=== PATIENT | female | born 1950 | race Caucasian/White ===

== ENCOUNTER 2019-08-08 10:40 | Outpatient (CLI) | payer MEDICARE, MEDICAID, SELFPAY ==
[2019-08-08 11:34] LABS: Basophils % 0.5 %; Eosinophils # 0.2 10^3/uL (0.0-0.8); Eosinophils % 2.7 %; Hematocrit 43.9 % (37.0-47.0); Hemoglobin 14.5 g/dL (11.5-15.3); Lymphocytes # 2.2 10^3/uL (0.8-4.8); Lymphocytes % 28.6 %; Mean Corpuscular Hemoglobin 29.9 pg (28.0-34.0); Mean Corpuscular Volume 90.5 fL (81-99); Mean Platelet Volume 11.3 fL (7.4-10.4); Monocytes # 0.6 10^3/uL (0.2-0.9); Monocytes % 7.6 %; Neutrophils # 4.6 10^3/uL (1.8-7.7); Neutrophils % 60.5 %; Nucleated Red Blood Cells % 0 %; Platelet Count 219 10^3/cmm (130-400); Red Blood Count 4.85 10^6/uL (4.1-5.3); Red Cell Distribution Width 12.7 % (12.1-15.1); White Blood Count 7.5 10^3/uL (4.0-10.0)
[2019-08-08 11:42] LABS: Ferritin 195 ng/mL (15-150); Iron 164 ug/dL (37-145); Percent Saturation 68.6 % (20-50); Total Iron Binding Capacity 239 mcg/dl; Unsaturated Iron Binding 75 ug/dL (112-347)
--- NOTE | 2019-08-08 13:18 | ONC FU_ITS ---
Dr. Appiah follow up note Patient: Yanet Valentin Unit #: [id number]: 1950 Dicatated By: Prudencio Appiah M.D.Date of Visit:Aug 08, 2019 Onc Med Follow-up/Prog Note History of Present Illness: Mrs. Yanet Valentin , is a 69 -year-old female recently diagnosed with iron deficiency anemia,, underwent colonoscopy on 08/08/2018, as per patient it was normal exam. Patient's follow-up CBC done on 08/24/2018 showed white blood count 6.8 hemoglobin 6.8, hematocrit 24.4 MCV 59 MCHC 27.9 platelets 448,000 and iron studies showed ferritin 4, TIBC 379, reticulocyte count 1.1, iron saturation 2% patient was given 2 units of packed RBCs on 08/29/2018 and started on oral iron delayed-release fe sulfate 325 mg 2 tablets every other day with vitamin C. Repeat CBC on 09/12/2018 showed white blood count 8 hemoglobin 11.2 crit 36.2 MCV 68 platelets 338,000 Status post Injectafer 750 mg weekly ???2 in November 2018 Came for follow-up, denies any specific complaints, no fever or chills, no nausea or vomiting no diarrhea constipation, no melena or hematochezia, no palpitation or shortness of breath. No generalized weakness and fatigue. Medications: B-6 1 Tablet (of 50 mg) Oral daily, FLUoxetine HCl 1 Tablet (of 20 mg) Oral daily, Levothyroxine Sodium 1 Tablet (of 100 mcg) Oral daily, Potassium Chloride ER 1 Tablet (of 10 meq) Tablet, controlled release Oral daily, Pravastatin Sodium 1 Tablet (of 20 mg) Oral at bedtime, Valsartan 1 Tablet (of 160 mg) Oral b.i.d., Vitamin C 1 Tablet (of 500 mg) Capsule Oral PRN Allergies: Penicillins Review of Systems: Constitutional - Appetite is good, no unexplained wightloss. No fevers, chills, night sweats. Energy level is good, ENMT - No sinus congestion/drainage. No mouth sores. No sore throat or difficulty swallowing, Hematologic/Lymphatic - The patient denies any tender or palpable lymph nodes, Respiratory - No dyspnea on exertion, chest pain, cough or hemoptysis, Cardiovascular - No anginal chest pain, palpitations or orthopnea, Gastrointestinal - No nausea, vomiting, diarrhea, GI bleeding, or constipation. No change in bowel habits, no heartburn or early satiety, Genitourinary (F) - No hematuria, dysuria, increased frequency, urgency, hesitancy or incontinence, Musculoskeletal - No joint pain, swelling or redness. No decreased range of motion, Neurologic - No headache or dizziness. No numbness/paresthesias or other focal neurologic symptoms, Psychiatric - No insomnia, depression, bishop or mood swings. No psychotropic drugs. Vital Signs: Performed on Aug 08, 2019 12:37 Height - 62.00 in Temperature - 98.4 F Pulse - 63 /min Respiration - 18 /min BP - 151/91 mm(hg) (HIGH) O2 Sat - 100 % Pain - 0 Performance Status: 0 - Fully active, able to carry on all predisease activities without restrictions. (ECOG) Physical Examination: ENMT - No oral exudates, ulcers, masses, thrush or mucositis. Oropharynx clear. Tongue normal, Respiratory - Lungs are clear to auscultation without rhonchi or wheezing, Cardiovascular - Regular rate and rhythm of heart, Abdomen - Non-tender, non-distended, Good bowel sounds. No guarding or rebound tenderness. No pulsatile masses, Extremities - no edema. Lab/Imaging: Test performed on May 13, 2019 08:50 Ferritin 216.0 ng/ml WBC 7.1 10 3/uL RBC 4.74 10 6/uL HGB 14.4 g/dL HCT 44.7 % MCV 94.3 fl MCH 30.4 pg MCHC 32.2 g/dl RDW 12.9 % Platelet Count 229 10 3/cmm MPV 11.2 fl Neutrophils 4.0 10 3/uL Lymphocytes 2.3 10 3/uL Monocytes 0.5 10 3/uL Eosinophils 0.2 10 3/uL Basophils 0.1 10 3/uL Neutrophil % 56.1 % Lymphocyte % 32.8 % Monocyte % 7.1 % Eosinophil % 3.2 % Basophils % 0.7 % CBC Slide Review SLIDE REVIEW PERFORM SLIDE REVIEW AGREES WITH AUTOMATED RESULTS ST Impression: Microcytic, hypochromic anemia due to iron deficiency due to chronic GI blood loss or malabsorption, less likely as not responding well to oral iron. Iron studies done on 08/27/2018 showed ferritin 4, TIBC 379, iron saturation 2%, reticulocyte count 1.1, CBC done on 08/24/2018 showed white blood count 6.8 hemoglobin 6.8 hematocrit 24.4 MCV 59 MCH 16.5 MCHC 27.9, platelets 448,000 Status post 2 units of packed RBCs done on 08/29/2018 Colonoscopy done on 08/13/2018 showed, as per patient, no evidence of GI bleed Plan: Discussed with patient regarding her labs white blood count 7.5 globin 14.5 hematocrit 43.9 platelets 219,000 ferritin 195 TIBC 239 iron saturation 68.6 Clinically, patient is doing well, more energetic, follow-up lab shows hemoglobin and iron studies within normal range. We'll continue to monitor she'll return to clinic in 3 months with CBC and iron studies if normal then we'll see her on as-needed basis Signed By: Prudencio Appiah M.D. <<Signature on File>>
== END 2019-08-08 10:41 | disposition home or self-care (01) ==
LOC: ONCMED 10:45
PROVIDERS: Family Provider Nurse Practitioner Family; PCP Nurse Practitioner Family; Visit Provider Internal Medicine Hematology & Oncology
DX: D50.9 Iron deficiency anemia, unspecified (principal); Z79.899 Other long term (current) drug therapy
CPT/HCPCS: 36415; 82728; 83540; 83550; 85025; G0463

== ENCOUNTER 2019-10-31 13:16 | Outpatient (CLI) | payer MEDICARE, MEDICAID, SELFPAY ==
[2019-10-31 13:45] LABS: Basophils % 0.4 %; Eosinophils # 0.1 10^3/uL (0.0-0.8); Eosinophils % 1.4 %; Hematocrit 44.9 % (37.0-47.0); Hemoglobin 14.6 g/dL (11.5-15.3); Lymphocytes # 2.1 10^3/uL (0.8-4.8); Lymphocytes % 30.5 %; Mean Corpuscular HGB Conc 32.5 g/dL (30.0-36.0); Mean Corpuscular Hemoglobin 29.4 pg (28.0-34.0); Mean Corpuscular Volume 90.3 fL (81-99); Mean Platelet Volume 10.7 fL (7.4-10.4); Monocytes # 0.5 10^3/uL (0.2-0.9); Monocytes % 6.6 %; Neutrophils # 4.3 10^3/uL (1.8-7.7); Neutrophils % 60.8 %; Nucleated Red Blood Cells % 0 %; Platelet Count 249 10^3/cmm (130-400); Red Blood Count 4.97 10^6/uL (4.1-5.3); Red Cell Distribution Width 12.7 % (12.1-15.1)
[2019-10-31 13:59] LABS: Ferritin 195 ng/mL (15-150); Iron 110 ug/dL (37-145); Percent Saturation 53.9 % (20-50); Total Iron Binding Capacity 204 mcg/dl; Unsaturated Iron Binding 94 ug/dL (112-347)
--- NOTE | 2019-10-31 14:24 | ONC FU_ITS ---
Dr. Appiah follow up note Patient: Yanet Valentin Unit #: [id number]: 1950 Dicatated By: Prudencio Appiah M.D.Date of Visit:Oct 31, 2019 Onc Med Follow-up/Prog Note History of Present Illness: Mrs. Yanet Valentin , is a 69 -year-old female recently diagnosed with iron deficiency anemia,, underwent colonoscopy on 08/08/2018, as per patient it was normal exam. Patient's follow-up CBC done on 08/24/2018 showed white blood count 6.8 hemoglobin 6.8, hematocrit 24.4 MCV 59 MCHC 27.9 platelets 448,000 and iron studies showed ferritin 4, TIBC 379, reticulocyte count 1.1, iron saturation 2% patient was given 2 units of packed RBCs on 08/29/2018 and started on oral iron delayed-release fe sulfate 325 mg 2 tablets every other day with vitamin C. Repeat CBC on 09/12/2018 showed white blood count 8 hemoglobin 11.2 crit 36.2 MCV 68 platelets 338,000 Status post Injectafer 750 mg weekly ???2 in November 2018, With excellent response Came for follow-up, denies any specific complaints, no nausea or vomiting, no diarrhea or constipation, no melena hematochezia, no shortness of breath or palpitation, energetic and no new signs symptoms. Medications: B-6 1 Tablet (of 50 mg) Oral daily, FLUoxetine HCl 1 Tablet (of 20 mg) Oral daily, Levothyroxine Sodium 1 Tablet (of 100 mcg) Oral daily, Potassium Chloride ER 1 Tablet (of 10 meq) Tablet, controlled release Oral daily, Pravastatin Sodium 1 Tablet (of 20 mg) Oral at bedtime, Valsartan 1 Tablet (of 160 mg) Oral b.i.d., Vitamin C 1 Tablet (of 500 mg) Capsule Oral PRN Allergies: Penicillins Review of Systems: Review of Systems is not available for this patient. Vital Signs: Performed on Oct 31, 2019 14:05 Height - 62.00 in Weight - 134.8 lbs (HIGH) BSA - 1.62 sq.m BMI - 24.66 Temperature - 99.2 F (HIGH) Pulse - 60 /min Respiration - 18 /min BP - 156/76 mm(hg) (HIGH) O2 Sat - 98 % Pain - 0 Performance Status: 0 - Fully active, able to carry on all predisease activities without restrictions. (ECOG) Physical Examination: ENMT - No mouth sores, no thrush or jaundice, Respiratory - Lungs are clear to auscultation, Cardiovascular - Regular rate and rhythm of heart, Abdomen - Soft, bowel sounds present, nontender, Extremities - No visible edema. Lab/Imaging: Test performed on Aug 08, 2019 10:55 Ferritin 195 ng/mL Iron 164 mcg/dL Iron Binding Capacity (TIBC) 239 mcg/dl % Iron Saturation 68.6 % UIBC 75 mcg/dL WBC 7.5 10 3/uL RBC 4.85 10 6/uL HGB 14.5 g/dL HCT 43.9 % MCV 90.5 fL MCH 29.9 pg MCHC 33.0 g/dL RDW 12.7 % Platelet Count 219 10 3/cmm MPV 11.3 fL Neutrophils 4.6 10 3/uL Lymphocytes 2.2 10 3/uL Monocytes 0.6 10 3/uL Eosinophils 0.2 10 3/uL Basophils 0.0 10 3/uL Neutrophil % 60.5 % Lymphocyte % 28.6 % Monocyte % 7.6 % Eosinophil % 2.7 % Basophils % 0.5 % Test performed on May 13, 2019 08:50 CBC Slide Review SLIDE REVIEW PERFORM SLIDE REVIEW AGREES WITH AUTOMATED RESULTS ST Impression: Microcytic, hypochromic anemia due to iron deficiency due to chronic GI blood loss or malabsorption, less likely as not responding well to oral iron. Iron studies done on 08/27/2018 showed ferritin 4, TIBC 379, iron saturation 2%, reticulocyte count 1.1, CBC done on 08/24/2018 showed white blood count 6.8 hemoglobin 6.8 hematocrit 24.4 MCV 59 MCH 16.5 MCHC 27.9, platelets 448,000 Status post 2 units of packed RBCs done on 08/29/2018 Status post Injectafer 750 mg IV weekly x2 in November 2018, With excellent response e.g. normalization of iron deficiency anemia and replenishment of iron stores Colonoscopy done on 08/13/2018 showed, as per patient, no evidence of GI bleed Plan: Discussed with patient regarding her labs white blood count 7 hemoglobin 14.6 crit 44.9 platelets 149,000 MCV 90.3 iron saturation 53.9%, ferritin 195, iron 110 Clinically, patient is doing well with no signs symptoms suggestive of blood loss and overall feeling well, energetic. Her follow-up labs shows hemoglobin staying within normal range as well as iron stores, last time and the only time she received Injectafer weekly x2 in November 2018, since then she has maintained her hemoglobin and iron stores within normal range. At this point, no further work-up and patient will follow-up with her PMD on regular basis and will see her on as-needed basis. Signed By: Prudencio Appiah M.D. <<Signature on File>>
== END 2019-10-31 13:17 | disposition home or self-care (01) ==
LOC: ONCMED 13:19
PROVIDERS: PCP Nurse Practitioner Family; Visit Provider Internal Medicine Hematology & Oncology
DX: D50.9 Iron deficiency anemia, unspecified (principal); F41.9 Anxiety disorder, unspecified; F32.9 Major depressive disorder, single episode, unspecified; E78.00 Pure hypercholesterolemia, unspecified; I10 Essential (primary) hypertension; E03.9 Hypothyroidism, unspecified; M81.0 Age-related osteoporosis without current pathological fracture; Q43.8 Other specified congenital malformations of intestine
CPT/HCPCS: 36415; 82728; 83540; 83550; 85025; G0463

== ENCOUNTER 2020-02-06 12:33 | Outpatient (CLI) | payer MEDICARE, MEDICAID, SELFPAY ==
--- NOTE | 2020-02-06 12:59 | XR_ITS ---
WS: [id number] KNEE RIGHT TECHNIQUE: 4 views of the right knee CLINICAL INFORMATION: KNEE PAIN COMPARISON: None. FINDINGS: Normal anatomic alignment. Osteopenia. Mild tricompartmental degenerative arthritis with medial and l ateral compartment narrowing. Mild narrowing of the patellofemoral articulation. Hypertrophic patella . No significant joint effusion. Mild hypertrophic changes along the joint line. Incidental enchondro ma distal femur XR/XR knee RT 4V [id number] IMPRESSION: Mild tricompartmental arthritis. Osteopenia.
== END 2020-02-06 12:34 | disposition home or self-care (01) ==
LOC: RADWPI 12:37
PROVIDERS: PCP Nurse Practitioner Family; Visit Provider Nurse Practitioner Family
DX: M13.861 Other specified arthritis, right knee (principal); M85.88 Other specified disorders of bone density and structure, other site
CPT/HCPCS: 73564

== ENCOUNTER 2020-02-25 08:37 | Outpatient (RCR) | payer MEDICARE, MEDICAID, SELFPAY | END 2020-03-21 23:59 | disposition home or self-care (01) | LOC: SPT 08:37 | PROVIDERS: PCP Nurse Practitioner Family; Referring Provider Nurse Practitioner Family; Visit Provider Nurse Practitioner Family | DX: M25.561 Pain in right knee (principal) | CPT/HCPCS: 97110; 97162 ==

== ENCOUNTER 2020-03-22 06:00 | Outpatient (RCR) | payer MEDICARE, MEDICAID, SELFPAY | END 2020-04-20 23:59 | disposition home or self-care (01) | LOC: SPT 06:00 | PROVIDERS: PCP Nurse Practitioner Family; Referring Provider Nurse Practitioner Family; Visit Provider Nurse Practitioner Family | DX: M25.561 Pain in right knee (principal) | CPT/HCPCS: 97110 ==

== ENCOUNTER 2020-05-27 10:44 | Outpatient (CLI) | payer MEDICARE, MEDICAID, SELFPAY ==
--- NOTE | 2020-05-27 10:53 | MM_ITS ---
WS: [id number] SCREENING DIGITAL MAMMOGRAM WITH CAD HISTORY: SCREENING COMPARISON: 09/07/2018, 09/04/2015 and 06/08/2017 Bilateral CC and MLO views submitted. Computer aided detection analyzed. Breast composition: The breasts are heterogeneously dense, which may obscure small masses. No suspici ous masses, microcalcifications or architectural distortion. MM/[place] [id number] IMPRESSION: BI-RADS: 1-Negative FOLLOW UP: 1 Year Follow-up
== END 2020-05-27 10:45 | disposition home or self-care (01) ==
LOC: RADSHAW 10:51
PROVIDERS: PCP Nurse Practitioner Family; Visit Provider Family Medicine
DX: Z12.31 Encounter for screening mammogram for malignant neoplasm of breast (principal)
CPT/HCPCS: 77067

== ENCOUNTER 2021-03-27 10:59 | Emergency (ER) | payer OTHER, MEDICARE, MEDICAID, SELFPAY ==
[2021-03-27 11:00] VITALS: BP 104/57; PULSE 84; RESP 14; TEMP 36.7; O2SAT 97; BMI 27.4
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
[2021-03-27] MEDS: acetaminophen 500 mg Tablet PO (11:40)
[2021-03-27 11:41] VITALS: BP 188/91; PULSE 79; O2SAT 97
[2021-03-27 12:19] VITALS: BP 166/111; PULSE 67; O2SAT 98
== END 2021-03-27 12:20 | disposition home or self-care (01) ==
LOC: ER 11:35
PROVIDERS: Emergency Provider Emergency Medicine; PCP Nurse Practitioner Family
DX: Z04.1 Encounter for examination and observation following transport accident (principal); V89.2XXA Person injured in unspecified motor-vehicle accident, traffic, initial encounter
CPT/HCPCS: 70450; 70486; 99283

== ENCOUNTER 2021-09-10 13:33 | Outpatient (CLI) | payer MEDICARE, MEDICAID, SELFPAY ==
--- NOTE | 2021-09-10 13:55 | MM_ITS ---
WS: [id number] VIEWS: MLO and CC views both breasts. 3D digital tomosynthesis is also included in this exam. Comparison made with prior exam of 07/22/2013, 08/29/2014, 09/04/2015, 06/08/2017, 09/07/2018, 05/27/2020.. Findings: There was no sign of mass, architectural distortion or suspicious calcification in either breast. Sta ble appearing asymmetric densities in both breasts.Heterogeneously dense MM/[place] [id number] Impression: BI-RADS: 2-Benign FOLLOW-UP: 1 Year Follow-up This mammogram was also analyzed by the Computer Aided Detection System R2 Imag e Social Staff Worker.
== END 2021-09-10 13:34 | disposition home or self-care (01) ==
LOC: RAD 13:37
PROVIDERS: PCP Nurse Practitioner Family; Visit Provider Family Medicine
DX: Z12.31 Encounter for screening mammogram for malignant neoplasm of breast (principal)
CPT/HCPCS: 77063; 77067

== ENCOUNTER 2022-07-04 13:41 | Outpatient (CLI) | payer MEDICARE, MEDICAID, SELFPAY ==
--- NOTE | 2022-07-04 13:50 | XR_ITS ---
WS: [id number] DEXA (DUAL ENERGY X-RAY ABSORPTIOMETRY) Bone mineral density was performed using a Blomming machine. HISTORY: OSTEOPENIA COMPARISON: 03/04/2019 Lumbar spine BMD (L1-L4): 1.247 g/cm2 T score: 0.6 Z score: 2.2 Total hip BMD: Left: 0.858 g/cm2. T score: -1.2 Z score: 0.2 Right: 0.759 g/cm2. T score: -2.0 Z score: -0.5 10 year probability of a major osteoporotic fracture is 10.1%. Compared to the prior study from 03/04/2019. Lumbar spine bone mineral density has increased by 0.1%. Bilateral hips bone mineral density has decreased by 0.9%. XR/XR DEXA axial skeleton* [id number] IMPRESSION: OSTEOPENIA based upon the WHO classification for females. No significant change in bone mineral density since the prior study.
== END 2022-07-04 13:42 | disposition home or self-care (01) ==
LOC: RAD 13:45
PROVIDERS: PCP Nurse Practitioner Family; Visit Provider Family Medicine
DX: M85.80 Other specified disorders of bone density and structure, unspecified site (principal)
CPT/HCPCS: 77080

== ENCOUNTER 2022-08-24 20:49 | Day surgery (SDC) | payer MEDICARE, MEDICAID, SELFPAY ==
[2022-08-24 21:07] VITALS: BP 164/84; PULSE 95; RESP 16; TEMP 36.6; O2SAT 96; BMI 27.4
[2022-08-24 21:34] VITALS: BP 158/88; PULSE 71; RESP 16; O2SAT 96
--- NOTE | 2022-08-24 21:36 | PC.NURSE ---
Patient was eating and got food stuck in throat around 1600. Patient states she was eating a pork chop. Patient states she vomited some, but gagging and a little flem up, no food came up.
--- NOTE | 2022-08-24 21:37 | W.ED.GENADLT ---
HPI - General Adult General: Chief complaint: Airway/Esophagus Foreign Body Stated complaint: fb in throat Time Seen by Provider: 08/24/22 21:30 Source: patient Mode of arrival: ambulatory Limitations: no limitations History of Present Illness: 72-year-old female states she is aching/this afternoon roughly 4:00 states that she is feeling she had a piece stuck in her esophagus since then states she is coughed and gagged and did vomit once but states she feels like nothing is moved she has been able to tolerate any fluids or solids she denies any chest pain denies any shortness of breath denies any worsening improving factors. Associated symptoms: Deny chest pain, dyspnea, headache(s), nausea, rash or vomiting Review of Systems Const: Denies: fever(s), chills, body aches or change in appetite Eyes: Denies: blurry vision or eye discomfort ENMT: Denies: throat pain or dental pain Card: Denies: chest pain Resp: Denies: dyspnea GI: Denies: abdominal pain, nausea, vomiting or diarrhea : Denies: dysuria Musc: Denies: neck pain or back pain Skin/Breast: Denies: rash Neuro: Denies: headache(s) Psych: Denies: depression Segun/Lymph: Denies: easy bruising All/Imm: Denies: urticaria PFSH ED PFSH: Medical History No pertinent past medical history Social History (Updated 08/24/22 @ 21:37 by Yahaira Bay MD) Substance/Drug Use: never Physical Exam Const: COMMON NORMALS: no acute distress, patient oriented x3 and healthy appearing HENMT: COMMON NORMALS: normocephalic and atraumatic HEAD & SCALP: normocephalic and atraumatic Eye: COMMON NORMALS: Equal, round and reactive pupils present and EOMs intact bilaterally PUPIL: Yes Equal, round and reactive pupils present Neck/C-Spine: COMMON NORMALS: full ROM and supple Chest: COMMONS NORMALS: normal inspection of the chest and normal palpation of entire chest wall Resp: COMMON NORMALS: normal respiratory effort, No retractions, No use of accessory muscles and clear to auscultation bilaterally AUSCULTATION: clear to auscultation bilaterally Cardio: COMMON NORMALS: regular rate, regular rhythm and No murmurs present (Cardio) RATE: regular rate RHYTHM: regular rhythm GI: COMMON NORMALS: Normal to inspection, nondistended, normoactive bowel sounds present, Soft to palpation, non-tender and no masses PALPATION: Yes Soft to palpation Extremity: COMMON NORMALS: normal to inspection and full ROM Neuro: COMMON NORMALS: patient oriented x3, moves all extremities and no focal motor deficits Psych: COMMON NORMALS: mental status grossly normal, Normal thought process present and cooperative THOUGHT PROCESS: Normal thought process present Skin: COMMON NORMALS: no rashes or lesions noted and no wounds GENERAL SKIN EXAM: no rashes or lesions noted Course Vital Signs: Vital signs: Vital Signs Temperature 97.8 F 08/24/22 21:07 Pulse Rate 71 08/24/22 21:34 Respiratory Rate 16 08/24/22 21:34 Blood Pressure 158/88 08/24/22 21:34 Pulse Oximetry 96 08/24/22 21:34 Oxygen Delivery Me thod 08/24/22 21:07 MDM - General Adult Medical Decision Making Patient presents with esophageal food impaction tried glucagon she had no relief spoke to surgeon will go to GI lab at this time. Discharge Plan Discharge Patient Disposition: Admitted As Inpatient Clinical Impression: Food impaction of esophagus Coding Level of Care Code ED Hoop Bending Machine Operator for Jyoti Dc
--- NOTE | 2022-08-24 22:48 | P.CONIM_ITS ---
Providers/Reason For Consult Consulting Physician/Specialty*: ER MD Reason for Consult*: [facility] Attending Physician: Pepe Rodriguez MD History of Present Illness History of Present Illness Yanet Valentin is a 72 year old female who has dislodged this piece of food. The patient denies fever or chills. The patient has had an episode of vomiting. With nausea. She has had no constipation or diarrhea. The patient is never had this before. Review of Systems General: Reports: 10 or more systems reviewed and unremarkable except in HPI and below Medications/Allergies Allergies Allergy/AdvReac Type Severity Reaction Status Date / Time Penicillins Allergy Unknown Verified 08/24/22 21:13 The patient's. The patient does take the thyroid pill although she cannot remember exactly what pills she takes. PFSH Acute PFSH: Medical History No pertinent past medical history Social History Substance/Drug Use: never Vitals/I&O/Wt Last Vital Signs Temp 97.8 F 08/24/22 21:07 Pulse 71 08/24/22 21:34 Resp 16 08/24/22 21:34 BP 158/88 08/24/22 21:34 Pulse Ox 96 08/24/22 21:34 O2 Del Method 08/24/22 21:07 Weight last 48 hrs Weight 150 lb Physical Exam Narrative: Generally, lungs: Clear to auscultation and percussion Heart: Regular rate and rhythm with a 2/6 systolic ejection murmur. I do not appreciate any rubs clicks or JVD Abdomen: Soft, nontender without masses. Patient has positive bowel sounds. There is no hernias that I can appreciate. Pelvis: Stable to both AP) and and medial compression Extremities: There is no obvious deformities or point tenderness suggestive of fracture. The patient has no clubbing cyanosis or edema Neurologic: The patient is awake, alert, oriented x3. The patient's [place] Coma Scale is 15. The patient sensations intact to light touch throughout. A&P Assessment and plan (1) Food impaction of esophagus: Plan is for an EGD if the patient does not have any complications we will send the patient home this evening. Coding Level of Care Code Acute Code for Chg Fwd Diagnoses Food impaction of esophagus T18.128A
--- NOTE | 2022-08-24 23:02 | P.ANESASSM_ITS ---
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 Says she's been told that she's doing good since. Able to achieve > 4 METS with no CP, SOB, dizziness. Metabolic Thyroid Disease Anesthetic Plan ASA status: 3E Anesthesia: General Risk of > 500 ml blood loss (7ml/kg in children): No Medications/Allergies Allergies Allergy/AdvReac Type Severity Reaction Status Date / Time Penicillins Allergy Unknown Verified 08/24/22 21:13 [facility] Anesthesia Medical History No pertinent past medical history Social History Substance/Drug Use: never Data Anesthesia Cardiac Studies: No Data to Display
[2022-08-24] MEDS: sodium chloride 0.9% 1,000 ML 30 ML IV (23:19)
[2022-08-24 23:57] VITALS: BP 161/79; PULSE 65; RESP 18; TEMP 36.1; O2SAT 98
--- NOTE | 2022-08-24 23:59 | PM.PN ---
Subjective Subjective: This patient is status post EGD. Patient tolerated the procedure well. The patient can be discharged from the emergency room. The patient should be on a full liquid diet for 24 hours. Then she needs to be on a minced meat diet. Everything should be cut up and be extremely small. She should follow-up with Dr. Choudhury for an EGD with dilation. We will start the patient on Protonix. Vitals/I&O/Wt Last Vital Signs Temp 97.8 F 08/24/22 21:07 Pulse 71 08/24/22 21:34 Resp 16 08/24/22 21:34 BP 158/88 08/24/22 21:34 Pulse Ox 96 08/24/22 21:34 O2 Del Method 08/24/22 21:07 Weight last 48 hrs Weight 150 lb Attestations Medical Necessity Statement*: Will be discharged home Coding Level of Care Code Acute Code for Chg Fwmaricel
[2022-08-25] VITALS (7 sets, daily range): BP systolic 140–158; BP diastolic 74–89; PULSE 86–97; RESP 16; TEMP 36.1; O2SAT 97
--- NOTE | 2022-08-25 00:30 | ANE.PACU2 ---
Inpatient post-anesthesia follow up: Airway intact: Yes Vital signs: Temperature 97 F Pulse Rate 86 Respiratory Rate 16 Blood Pressure 149/82 Pulse Oximetry 97 Oxygen Delivery Me thod Room Air Oxygen Flow Rate Fraction of Inspir ed Oxygen Hydration adequate: Yes Nausea and vomiting: No Pain level: 1 Mental status: Baseline
== END 2022-08-25 00:50 | disposition home or self-care (01) ==
LOC: ER 21:30 → GILAB 22:12
PROVIDERS: Emergency Provider Emergency Medicine; Visit Provider Surgery Surgical Critical Care
PROC: 0DJ08ZZ Inspection of Upper Intestinal Tract, Via Natural or Artificial Opening Endoscopic (ICD-10-PCS; CPT 43235; principal; 2022-08-24 23:05)
DX: T18.128A Food in esophagus causing other injury, initial encounter (principal); X58.XXXA Exposure to other specified factors, initial encounter; Z95.0 Presence of cardiac pacemaker; I48.91 Unspecified atrial fibrillation; E03.9 Hypothyroidism, unspecified; K44.9 Diaphragmatic hernia without obstruction or gangrene
CPT/HCPCS: 43247; 96372; J0330; J1100; J1610; J2405; J2704; J7030

== ENCOUNTER → 2022-09-08 14:50 | Outpatient (BNVA) | payer MEDICARE, MEDICAID, SELFPAY | PROVIDERS: PCP Family Medicine; Visit Provider Surgery | DX: T18.128A Food in esophagus causing other injury, initial encounter (principal); K21.9 Gastro-esophageal reflux disease without esophagitis; X58.XXXA Exposure to other specified factors, initial encounter | CPT/HCPCS: 99203 ==

== ENCOUNTER 2022-09-22 07:11 | Day surgery (SDC) | payer MEDICARE, MEDICAID, SELFPAY ==
[2022-09-20 12:09] VITALS: BMI 27.4
--- NOTE | 2022-09-21 15:18 | ANE.PACU2 ---
Inpatient post-anesthesia follow up: Airway intact: Yes Vital signs: Temperature Pulse Rate Respiratory Rate Blood Pressure Pulse Oximetry Oxygen Delivery Me thod Oxygen Flow Rate Fraction of Inspir ed Oxygen Hydration adequate: Yes Nausea and vomiting: No Pain level: 1 Mental status: Baseline
[2022-09-22 07:31] VITALS: BP 148/77; PULSE 81; RESP 18; TEMP 36.5; O2SAT 97
--- NOTE | 2022-09-22 07:50 | ANES.PREANE2 ---
Pre-Anesthetic Assessment Height/Weight: Height 1.57 m Weight 68.039 kg Temp Pulse Resp BP Pulse Ox O2 Del Method 97.7 F 81 18 148/77 97 Room Air 09/22/22 07:31 09/22/22 07:31 09/22/22 07:31 09/22/22 07:31 09/22/22 07:31 09/22/22 07:31 Preop Diagnosis: Recent food bolus/dysphagia Operation Date: 09/22/22 08:30 Proposed Procedures p [id number] EGd w/ ball dilation T18.12A,K21.9 GERD(Not Applicable) - Charly Choudhury, DO Was Beta Anna taken within 24 hours: N/A Was Clonidine taken within 24 hours: N/A Last intake: Intake Last Liquid Date 09/21/22 Last Liquid Time 18:00 Last Solid Date 09/21/22 Last Solid Time 17:00 Social No alcohol and No tobacco Exam alert, oriented x 3, clear to auscultation bilaterally and regular rate & rhythm Airway Submandibular: within normal limits Cervical ROM: within normal limits Mallampati: Class II Dentition: false History/ROS No significant history except as noted and No significant complaints Pulmonary None reported CV/HEM Arrythmia and Hypertension Pacemaker None reported Hepatic None reported GI None reported Metabolic Thyroid Disease [facility] [place] [facility] None reported Neuropsych None reported Anesthetic Plan ASA status: 3 Anesthesia: MAC Risk of > 500 ml blood loss (7ml/kg in children): No Medications/Allergies Home Medications Medication Instructions Recorded Confirmed Last Taken Type pantoprazole 40 mg tablet,delayed 40 mg PO DAILY #60 tabs 08/25/22 09/20/22 09/22/22 06:00 Rx release (Protonix) atorvastatin 20 mg tablet 20 mg PO DAILY 09/20/22 09/20/22 09/21/22 History hydrochlorothiazide 25 mg tablet 25 mg PO DAILY 09/20/22 09/20/22 09/22/22 06:00 History levothyroxine 50 mcg tablet 50 mcg PO DAILY 09/20/22 09/20/22 09/21/22 History melatonin 5 mg capsule 5 mg PO DAILY 09/20/22 09/20/22 09/21/22 History potassium chloride 10 mEq 10 meq PO BID 09/20/22 09/20/22 09/22/22 06:00 History tablet,extended release (Klor-Con) telmisartan 80 mg tablet 80 mg PO DAILY 09/20/22 09/20/22 09/22/22 06:00 History Allergies Allergy/AdvReac Type Severity Reaction Status Date / Time Penicillins Allergy Unknown Verified 09/20/22 12:04 [facility] Anesthesia Medical History No pertinent past medical history Social History Substance/Drug Use: never Data Anesthesia Cardiac Studies: No Data to Display
[2022-09-22] MEDS: sodium chloride 0.9% 1,000 ML 30 ML IV (07:52)
--- NOTE | 2022-09-22 07:54 | W.PM.OPSUD ---
Surgery/Procedure H&P Update DATE OF PROCEDURE: September 22, 2022 DATE H&P PERFORMED: 09/08/22 H&P UPDATE INFORMATION: I have reviewed H&P completed within last 30 days, I have examined patient prior to procedure and Changes to prior documentation as noted here (EGD with possible balloon dilation) PREOP DIAGNOSIS: Recent food bolus/dysphagia PLANNED PROCEDURE: Operation Date: 09/22/22 08:30 [place] Procedures p [id number] EGd w/ ball dilation T18.12A,K21.9 GERD(Not Applicable) - Charly Choudhury DO
[2022-09-22 08:49] VITALS: BP 116/74; PULSE 78; RESP 18; TEMP 36.1; O2SAT 98
[2022-09-22 09:23] VITALS: BP 122/79; PULSE 71; RESP 18; O2SAT 96
--- NOTE | 2022-09-22 13:43 | ANE.PACU2 ---
Inpatient post-anesthesia follow up: Airway intact: Yes Vital signs: Temperature 97.0 F Pulse Rate 71 Respiratory Rate 18 Blood Pressure 122/79 Pulse Oximetry 96 Oxygen Delivery Me thod Room Air Oxygen Flow Rate 5 Fraction of Inspir ed Oxygen Hydration adequate: Yes Nausea and vomiting: No Pain level: 1 Mental status: Baseline
== END 2022-09-22 09:24 | disposition home or self-care (01) ==
PROVIDERS: PCP Family Medicine; Visit Provider Surgery
DX: K22.2 Esophageal obstruction (principal); K29.50 Unspecified chronic gastritis without bleeding; K44.9 Diaphragmatic hernia without obstruction or gangrene; K21.9 Gastro-esophageal reflux disease without esophagitis; I10 Essential (primary) hypertension; E07.9 Disorder of thyroid, unspecified; Z79.899 Other long term (current) drug therapy; Z88.0 Allergy status to penicillin; Z95.0 Presence of cardiac pacemaker
CPT/HCPCS: 43239; 43249; 88305; 88342; J2704; J7030

== ENCOUNTER 2022-10-05 13:18 | Outpatient (CLI) | payer MEDICARE, MEDICAID, SELFPAY ==
--- NOTE | 2022-10-05 13:29 | MM_ITS ---
WS: [id number] BILATERAL 3D TOMOSYNTHESIS DIGITAL SCREENING MAMMOGRAPHY WITH CAD CLINICAL INFORMATION: SCREENING HISTORY: Screening mammogram. No current complaints. COMPARISON: 2021 TECHNIQUE: Bilateral CC and MLO views. FINDINGS: Cardiac pacer. The breasts are composed of heterogeneous fibroglandular density tissue, which can limit the detectio n of small underlying mass lesions. No suspicious mass, asymmetry, calcifications, or architectural d istortion. No evidence of malignancy. Stable incidental punctate and clustered calcifications. MM/[place] [id number] IMPRESSION: BI-RADS: 2-Benign FOLLOW UP: 1 Year Follow-up Recommend return to annual screening mammography.
== END 2022-10-05 13:19 | disposition home or self-care (01) ==
LOC: RAD 13:22
PROVIDERS: PCP Family Medicine; Visit Provider Family Medicine
DX: Z12.31 Encounter for screening mammogram for malignant neoplasm of breast (principal)
CPT/HCPCS: 77063; 77067

== ENCOUNTER 2024-12-24 10:32 | Emergency (ER) | payer MEDICARE, SELFPAY ==
[2024-12-24 10:33] VITALS: BP 152/80; PULSE 60; RESP 16; TEMP 36.4; O2SAT 96; BMI 24.5
--- NOTE | 2024-12-24 10:33 | ECG_ITS ---
[facility] Date: 2024-12-24 Pat Name: Yanet Valentin Department: Room: Gender: Female Sanitation Officer: : 1950 Requested By: Sanford Ivey Order Number: [id number] Ann-Marie MD: Hernesto Miranda M.D. Measurements Intervals [place] Rate: 60 P: 193 FL: 299 QRS: 265 QRSD: 140 T: 64 QT: 465 QTc: 465 Interpretive Statements ELECTRONIC ATRIAL PACEMAKER ELECTRONIC VENTRICULAR PACEMAKER ABNORMAL RHYTHM ECG Compared to ECG 09/03/2018 11:48:00 Sinus rhythm no longer present Left bundle-branch block no longer present Electronically Signed On 12-24-2024 23:01:15 CDT by Hernesto Miranda M.D. [email or web address]
--- NOTE | 2024-12-24 10:34 | W.ED.GENADLT ---
HPI - General Adult General: Chief complaint: General Medical Stated complaint: UNKNOWN CARDIAC PROBLEMS Time Seen by Provider: 12/24/24 10:33 History of Present Illness: 74-year-old female presents emergency room from local clinician's office. The concern when she was seen today was that she reportedly was concerned she might have passed out patient denies feeling if she is in a pass out now she does have a documented blood pressure 90 systolic while at the doctor's office she denies any chest pain or palpitations. She has a pacemaker in place been there for about 5 years she had a few months ago was evaluated when she was still in [place] to the best of her knowledge everything was working well. She denies any orthopnea or swelling in her legs no current lightheadedness dizziness vision changes. Associated symptoms: Deny chest pain, dyspnea or rash Related Data Home Medications ?Medication ?Instructions ?Recorded ?Confirmed melatonin 5 mg capsule 5 mg PO DAILY 09/20/22 12/24/24 Previous Rx's ?Medication ?Instructions ?Recorded atorvastatin 20 mg tablet 20 mg PO DAILY #90 tabs 11/11/24 carvedilol 6.25 mg tablet 6.25 mg PO BID #180 tabs 11/11/24 hydrochlorothiazide 25 mg tablet 25 mg PO DAILY #90 tabs 11/11/24 levothyroxine 50 mcg tablet 50 mcg PO DAILY #90 tabs 11/11/24 pantoprazole 40 mg tablet,delayed 40 mg PO DAILY #90 tabs 11/11/24 release (Protonix) spironolactone 25 mg tablet 25 mg PO DAILY #90 tabs 11/11/24 telmisartan 80 mg tablet 80 mg PO DAILY #90 tabs 11/11/24 Allergies Allergy/AdvReac Type Severity Reaction Status Date / Time Penicillins Allergy Unknown Verified 12/24/24 09:31 Review of Systems Const: Denies: fever(s) or chills Card: Denies: chest pain Resp: Denies: dyspnea GI: Denies: abdominal pain : Denies: dysuria, urinary frequency or urinary urgency Musc: Denies: neck pain or back pain Skin/Breast: Denies: rash PFSH ED PFSH: Medical History History of heart failure Mitral valve insufficiency, unspecified etiology History of pacemaker 4 years ago Acquired hypothyroidism No pertinent past medical history Surgical History S/P cardiac pacemaker procedure [place] 2019 History of ankle surgery Pin in left ankle Family History Father Congestive heart failure (CHF) Tachycardia Social History Smoking and tobacco/nicotine status: never used tobacco/nicotine Alcohol intake: never Substance/Drug Use: never Physical Exam Const: GENERAL APPEARANCE: cooperative ORIENTATION/CONSCIOUSNESS: Yes awake, Yes oriented to person, Yes oriented to place and Yes oriented to time HENMT: COMMON NORMALS: normocephalic, atraumatic and hearing grossly normal bilaterally HEAD & SCALP: normocephalic and atraumatic Resp: COMMON NORMALS: normal respiratory effort, No retractions, No use of accessory muscles and clear to auscultation bilaterally AUSCULTATION: clear to auscultation bilaterally Cardio: COMMON NORMALS: regular rate, regular rhythm and No murmurs present (Cardio) RATE: regular rate RHYTHM: regular rhythm GI: COMMON NORMALS: Soft to palpation and No hepatosplenomegaly present AUSCULTATION: Yes normoactive bowel sounds PALPATION: Yes Soft to palpation, No Tenderness to palpation present (GI), No Guarding due to palpation present (GI) and Yes No hepatosplenomegaly present Extremity: COMMON NORMALS: normal to inspection, capillary refill normal, no clubbing, cyanosis or edema, no calf tenderness and no pedal edema Neuro: SENSORIUM/ORIENTATION: Yes oriented to person, Yes oriented to place and Yes oriented to time Skin: COMMON NORMALS: no rashes or lesions noted GENERAL SKIN EXAM: no rashes or lesions noted Course Vital Signs: Vital signs: Vital Signs Temperature 97.6 F 12/24/24 10:33 Pulse Rate 60 12/24/24 12:10 Respiratory Rate 16 12/24/24 10:33 Blood Pressure 125/70 12/24/24 12:10 Pulse Oximetry 97 12/24/24 12:10 Oxygen Delivery Me thod Room Air 12/24/24 10:33 MDM - General Adult Medical Decision Making Patient asymptomatic since she arrived here she has been normotensive awake alert has not had any arrhythmias she has had full capture on her pacemaker. Labs are unremarkable other than she is mildly anemic. She states she feels fine. Will go ahead and discharge her home we did orthostatics on her as well and those were normal. Follow-up with primary care provider return if she has further problems Medical Records I reviewed the patient's medical records. Lab Data I reviewed the patient's lab results. 12/24/24 11:06 12/24/24 11:06 Radiology Impressions Chest X-Ray 12/24/24 10:52 IMPRESSION: No acute chest abnormality. Laboratory Results WBC 7.33 10^3/uL (3.29-11.43) 12/24/24 11:06 RBC 4.33 10^6/uL (3.85-5.65) 12/24/24 11:06 Hgb 11.20 g/dL (11.27-16.99) L 12/24/24 11:06 Hct 34.6 % (36-47) L 12/24/24 11:06 MCV 79.9 fl (85-98) L 12/24/24 11:06 MCH 25.9 pg (27-33) L 12/24/24 11:06 MCHC 32.4 g/dL (30-55) 12/24/24 11:06 RDW 14.8 % (12.1-15.1) 12/24/24 11:06 Plt Count 199 10^3/cmm (157-399) 12/24/24 11:06 MPV 11.1 fL (7.4-10.4) H 12/24/24 11:06 Neut % (Auto) 66.5 % 12/24/24 11:06 Lymph % (Auto) 21.6 % 12/24/24 11:06 [place] % (Auto) 9.0 % 12/24/24 11:06 Eos % (Auto) 2.3 % 12/24/24 11:06 Baso % (Auto) 0.5 % 12/24/24 11:06 Neut # (Auto) 4.87 10^3/uL (1.8-7.7) 12/24/24 11:06 Lymph # (Auto) 1.6 10^3/uL (0.8-4.8) 12/24/24 11:06 [place] # (Auto) 0.7 10^3/uL (0.2-0.9) 12/24/24 11:06 Eos # (Auto) 0.2 10^3/uL (0.0-0.8) 12/24/24 11:06 Baso # (Auto) 0.0 10^3/uL (0.0-0.1) 12/24/24 11:06 Nucleated RBC % (auto) 0 % 12/24/24 11:06 Nucleated RBCs # 0.0 /100WBC 12/24/24 11:06 Sodium 138 mmol/L (136-145) 12/24/24 11:06 Potassium 3.7 mmol/L (3.5-5.1) 12/24/24 11:06 Chloride 103 mmol/L (98-107) 12/24/24 11:06 Carbon Dioxide 26 mmol/L (22-29) 12/24/24 11:06 Anion Gap 12.7 (5-19) 12/24/24 11:06 BUN 17 mg/dL (8-23) 12/24/24 11:06 Creatinine 0.9 mg/dL (0.5-0.9) 12/24/24 11:06 GFR Calculation Not Reportable 12/24/24 11:06 Glucose 95 mg/dL (65-115) 12/24/24 11:06 Calculated Osmolality 287 mOsm/kg (285-295) 12/24/24 11:06 Calcium 9.1 mg/dL (8.5-10.5) 12/24/24 11:06 Total Bilirubin 0.6 mg/dL (0.15-1.2) 12/24/24 11:06 AST 19 U/L (0-32) 12/24/24 11:06 ALT 11 U/L (0-33) 12/24/24 11:06 Alkaline Phosphatase 89 U/L (35-105) 12/24/24 11:06 Total Protein 6.7 g/dL (6.6-8.7) 12/24/24 11:06 Albumin 3.9 g/dL (3.5-5.2) 12/24/24 11:06 Globulin 2.8 g/dL (1.3-4.6) 12/24/24 11:06 All radiology interpretation(s) finalized by discharge Discharge Plan Discharge Patient Disposition: Home Clinical Impression: Benign essential HTN, Chronic systolic heart failure, Acquired hypothyroidism, History of pacemaker Condition: Stable Prescriptions: No Action carvedilol 6.25 mg tablet 6.25 mg PO BID Qty: 180 0RF Rx Instructions: must administer with a meal/food hydrochlorothiazide 25 mg tablet 25 mg PO DAILY Qty: 90 0RF spironolactone 25 mg tablet 25 mg PO DAILY Qty: 90 0RF telmisartan 80 mg tablet 80 mg PO DAILY Qty: 90 0RF atorvastatin 20 mg tablet 20 mg PO DAILY Qty: 90 0RF levothyroxine 50 mcg tablet 50 mcg PO DAILY Qty: 90 0RF pantoprazole [Protonix] 40 mg tablet,delayed release (DR/EC) 40 mg PO DAILY Qty: 90 0RF melatonin 5 mg capsule 5 mg PO DAILY Discharge Orders: Discharge ED (Routine); Ordered 12/24/24 Ordered By: Sanford Marcial Referrals: Minda Jo DO [Primary Care Provider, Family Practice] Patient Instructions: Opioid Safety, Pain Management, Patient Portal & Mark Instructions Activity Restrictions/Additional Instructions: [facility] It is very important that you follow up as instructed or that you return to the Emergency Department should you have concerns or if your condition changes or worsens in any way. You were seen in the emergency room with concerns about your pacemaker and her blood pressure blood pressure was normotensive while you were here. Your pacemaker is pacing appropriately. Pacemaker interrogation does not show any concerns. Laboratory tests were also normal. We did blood pressures laying sitting and standing all of which were normal. He can safely be discharged home at this time no change in your medications follow-up with your primary care doctor as needed Print Language: Greenlandic Coding Level of Care Code ED Hourly Sign Language Interpreter for Jyoti Dc
--- NOTE | 2024-12-24 10:52 | XR_ITS ---
WS: [id number] XR chest 1V portable [id number] REASON FOR EXAM: Near syncope FINDINGS: Cardiac device over the left chest with trans left subclavian vein leads to the right atrium and right ventricular apex. The heart is at the upper limits of normal to mildly enlarged. Large hiatal hernia. No acute pulmonary parenchymal or pleural abnormality. XR/XR chest 1V portable [id number] IMPRESSION: No acute chest abnormality.
[2024-12-24 11:14] LABS: Hematocrit 34.6 % (36-47); Hemoglobin 11.20 g/dL (11.27-16.99); Mean Corpuscular HGB Conc 32.4 g/dL (30-55); Mean Corpuscular Hemoglobin 25.9 pg (27-33); Mean Corpuscular Volume 79.9 fl (85-98); Nucleated Red Blood Cells % 0 %; Platelet Count 199 10^3/cmm (157-399); Red Blood Count 4.33 10^6/uL (3.85-5.65); White Blood Count 7.33 10^3/uL (3.29-11.43)
[2024-12-24 11:19] VITALS: BP 126/73; BP 129/67; BP 130/67; PULSE 60; PULSE 66
[2024-12-24 11:28] LABS: Alanine Aminotransferase 11 U/L (0-33); Albumin Level 3.9 g/dL (3.5-5.2); Alkaline Phosphatase 89 U/L (35-105); Anion Gap 12.7 (5-19); Aspartate Amino Transferase 19 U/L (0-32); Blood Urea Nitrogen 17 mg/dL (8-23); Calcium 9.1 mg/dL (8.5-10.5); Carbon Dioxide 26 mmol/L (22-29); Chloride 103 mmol/L (98-107); Creatinine Clr Calc Pharmacy 48.4988; Globulin 2.8 g/dL (1.3-4.6); Glucose 95 mg/dL (65-115); Osmolality Calculated 287 mOsm/kg (285-295); Potassium 3.7 mmol/L (3.5-5.1); Sodium 138 mmol/L (136-145); Total Protein 6.7 g/dL (6.6-8.7)
[2024-12-24 12:10] VITALS: BP 125/70; PULSE 60; O2SAT 97
== END 2024-12-24 12:11 | disposition home or self-care (01) ==
PROVIDERS: Emergency Provider Family Medicine; PCP Family Medicine
DX: I11.0 Hypertensive heart disease with heart failure (principal); I50.22 Chronic systolic (congestive) heart failure; E03.9 Hypothyroidism, unspecified; Z95.0 Presence of cardiac pacemaker
CPT/HCPCS: 36415; 71045; 80053; 85025; 93005; 99285

== ENCOUNTER → 2025-05-05 13:02 | Outpatient (BNVA) | payer MEDICARE, SELFPAY | PROVIDERS: PCP Family Medicine; Visit Provider Internal Medicine Cardiovascular Disease | DX: I11.0 Hypertensive heart disease with heart failure (principal); I50.22 Chronic systolic (congestive) heart failure; Z95.0 Presence of cardiac pacemaker; R07.9 Chest pain, unspecified; I49.9 Cardiac arrhythmia, unspecified; R94.31 Abnormal electrocardiogram [ECG] [EKG] | CPT/HCPCS: 93005; 99204; 99214 ==